=== PATIENT | male | born 1970 | race African-American/Black ===

== ENCOUNTER 2019-07-23 14:51 | Emergency (ER) | payer MEDICAID ==
[~2019-07-23] VITALS: Ht 182.9 cm; Wt 90.0 kg
[2019-07-23] MEDS ORDERED: SODIUM CHLORIDE 0.9% 500 ML IV ONE (15:15)
[2019-07-23] MEDS ORDERED: KETOROLAC 30MG/ML VIAL IV ONE (15:15)
[2019-07-23 17:19] VITALS: BP 134/88
== END 2019-07-23 17:51 | disposition home or self-care (01) ==
LOC: ER 15:01
DX: M79.18 Myalgia, other site (principal)
CPT/HCPCS: 87804; 96374; 99283; J1885; J7040